=== PATIENT | female | born 1985 | race Two or more races ===

== ENCOUNTER → 2017-04-14 | Emergency (ER) | payer OTHER ==
[~2017-04-14] VITALS: Ht 162.6 cm; Wt 72.0 kg
[~2017-04-14] MED LIST: TETanus/Pertussis (Acell)/Diphther VAC/PF (Tdap-Adult) 0.5ml syringe IMVAC ONE
[2017-04-14 10:54] VITALS: BP 131/80
== END | disposition home or self-care (01) ==
LOC: ER 09:26
DX: S61.230A Puncture wound without foreign body of right index finger without damage to nail, initial encounter (principal); Z88.5 Allergy status to narcotic agent; Z88.8 Allergy status to other drugs, medicaments and biological substances; Z87.442 Personal history of urinary calculi; W46.0XXA Contact with hypodermic needle, initial encounter; Y93.89 Activity, other specified; Y92.89 Other specified places as the place of occurrence of the external cause; Y99.8 Other external cause status
CPT/HCPCS: 90471; 90715; 99283

== ENCOUNTER 2017-07-20 06:50 | Emergency (ER) | payer BC, OTHER ==
[~2017-07-20] VITALS: Ht 162.6 cm; Wt 60.0 kg
[2017-07-20 06:51] VITALS: BP 134/64
[2017-07-20] MEDS ORDERED: acetaminophen 325mg tablet PO ONE (07:00)
[2017-07-20] MEDS ORDERED: CYCL-1 PO (07:02)
[2017-07-20] MEDS ORDERED: IBUP-1986 PO (07:07)
== END 2017-07-20 07:16 | disposition home or self-care (01) ==
LOC: ER 06:51
DX: M54.2 Cervicalgia (principal); Z88.5 Allergy status to narcotic agent
CPT/HCPCS: 99283

== ENCOUNTER 2018-01-10 07:16 | Emergency (ER) | payer BC ==
[~2018-01-10] VITALS: Ht 162.6 cm; Wt 80.9 kg
[~2018-01-10 07:16] MED LIST changes: +CYCL-1 PO; +IBUP-1986 PO; -TETanus/Pertussis (Acell)/Diphther VAC/PF (Tdap-Adult) 0.5ml syringe IMVAC ONE
[2018-01-10] MEDS ORDERED: normal saline 1000ML IV soln IVB ONE ×2 (07:20→08:05)
[2018-01-10] MEDS ORDERED: ketorolac trometh. 30mg/ml inj. IV ONE (07:20)
[2018-01-10 07:21] VITALS: BP 136/63
[2018-01-10 08:09] LABS: MONOTEST NEGATIVE (Neg)
[2018-01-10] MEDS ORDERED: penicillin V potassium 500mg tablet PO ONE (08:10)
[2018-01-10] MEDS ORDERED: HYDR-565 PO (08:38)
[2018-01-10] MEDS ORDERED: GUAI10SY2 PO (08:38)
[2018-01-10] MEDS ORDERED: PENI500T2 PO (08:38)
== END 2018-01-10 09:13 | disposition home or self-care (01) ==
LOC: ER 07:16
DX: J02.0 Streptococcal pharyngitis (principal); Z87.442 Personal history of urinary calculi; Z90.49 Acquired absence of other specified parts of digestive tract; Z88.5 Allergy status to narcotic agent; Z79.899 Other long term (current) drug therapy
CPT/HCPCS: 36415; 86308; 87880; 96361; 96374; 99284; J1885; J7030

== ENCOUNTER 2019-04-04 07:51 | Emergency (ER) | payer BC ==
[~2019-04-04] VITALS: Ht 162.6 cm; Wt 66.4 kg
[2019-04-04] MEDS ORDERED: ondansetron/PF 4mg/2ml inj IV ONE (08:30)
[2019-04-04] MEDS ORDERED: normal saline 1000ML IV soln IVB ONE (08:30)
[2019-04-04 08:54] LABS: BASOPHILS # (AUTO) 0.1 X10'3 (0-0.2); EOSINOPHILS # (AUTO) 0.1 X10'3 (0-0.9); HEMATOCRIT 38.2 % (35.0-45.0); HEMOGLOBIN 13.3 g/dl (12.0-16.0); LYMPHOCYTES # (AUTO) 1.3 X10'3 (1.1-4.8); LYMPHOCYTES % (AUTO) 22.9 % (21-51); MEAN CORPUSCULAR HEMOGLOBIN 33.1 PG (27.0-31.0); MEAN CORPUSCULAR HGB CONC 34.8 g/dL (33.0-36.5); MEAN CORPUSCULAR VOLUME 95.3 FL (78-98); MEAN PLATELET VOLUME 7.2 FL (7.4-10.4); MONOCYTES # (AUTO) 0.5 X10'3 (0-0.9); MONOCYTES % (AUTO) 8.6 % (2-12); NEUTROPHILS # (AUTO) 3.8 X10'3 (1.8-7.7); NEUTROPHILS % (AUTO) 65.5 % (42-75); PLATELET COUNT 305 X10'3 (140-440); WHITE BLOOD COUNT 5.7 X10'3 (4.5-11.0)
[2019-04-04 09:09] LABS: ALANINE AMINOTRANSFERASE 22 U/L (12-78); ALBUMIN 3.4 G/DL (3.4-5.0); ALBUMIN/GLOBULIN RATIO 1.1 (1.1-1.5); ALKALINE PHOSPHATASE 29 IU/L (46-116); ANION GAP 7 (8-16); ASPARTATE AMINO TRANSFERASE 19 U/L (10-37); BILIRUBIN,TOTAL 0.3 MG/DL (0.1-1.0); BLOOD UREA NITROGEN 11 MG/DL (7-18); BUN/CREATININE RATIO 16.7 (6.6-38.0); CALCIUM 8.2 MG/DL (8.5-10.1); CHLORIDE 106 MMOL/L (99-107); CREATININE 0.66 MG/DL (0.40-0.90); GLUCOSE 74 MG/DL (70-104); POTASSIUM 4.3 MMOL/L (3.5-5.1); SODIUM 140 MMOL/L (135-145); TOTAL CARBON DIOXIDE 26.6 MMOL/L (24-32); TOTAL PROTEIN 6.6 G/DL (6.4-8.2); eGFR > 90 ML/MIN
[2019-04-04] MEDS ORDERED: ipratropium/albuterol 3ml nebule NEB ONE (09:40)
[2019-04-04] MEDS ORDERED: benzonatate 100mg capsule PO ONE (09:40)
[2019-04-04 09:59] LABS: CLARITY,URINE CLEAR (Clear); COLOR,URINE YELLOW (Yellow); GLUCOSE, URINE NEGATIVE (Neg); KETONES,URINE NEGATIVE (Neg); LEUKOCYTE ESTERASE ,URINE NEGATIVE (Neg); NITRITES, URINE NEGATIVE (Neg); OCCULT BLOOD,URINE NEGATIVE (Neg); PROTEIN,URINE NEGATIVE (Neg); UROBILINOGEN,URINE 0.2 E.U/dL (0.2-1.0)
[2019-04-04 10:00] LABS: UA COLLECTION TYPE CLN CATCH MIDSTREAM
[2019-04-04] MEDS ORDERED: BENZ-16 PO (10:01)
[2019-04-04] MEDS ORDERED: AZIT500T PO (10:01)
[2019-04-04 10:19] VITALS: BP 138/52
== END 2019-04-04 10:22 | disposition home or self-care (01) ==
LOC: ER 07:51
DX: J06.9 Acute upper respiratory infection, unspecified (principal); B96.89 Other specified bacterial agents as the cause of diseases classified elsewhere; R19.7 Diarrhea, unspecified; R11.10 Vomiting, unspecified; Z90.49 Acquired absence of other specified parts of digestive tract; Z88.5 Allergy status to narcotic agent; Z79.2 Long term (current) use of antibiotics; Z79.899 Other long term (current) drug therapy
CPT/HCPCS: 36415; 80053; 81003; 85025; 94640; 96361; 96374; 99283; J2405; J7030; 94760